=== PATIENT | male | born 1945 | race Caucasian/White ===

== ENCOUNTER 2016-10-06 22:42 | Inpatient (IN) | payer MEDICARE, OTHER ==
[~2016-10-06 22:42] MED LIST: ASTELIN137 MCG; AUGMENTIN 875-1 EAC2 PO; AVELOX400 MG PO; BACTRIM DS TAB1 EAC2 PO; BACTRIM DS1 TA1 PO; CIPRO250 MG PO; CIPRO500 MG PO; CLEOCIN HCL300 M1 PO; DELTASONE10 MG PO; DEXILANT60 MG PO; KEFLEX500 M2 PO; KEFLEX500 M4 PO; LEVAQUIN750 MG PO; LEXAPRO10 MG PO; LEXAPRO20 M2 PO; LOVENOX40 MG/0.4 SQ; MUCINEX D1 TAB.SR . PO; PANTOPRAZOLE SO40 M3 PO; PROTONIX40 MG PO; REGLAN10 M2 PO; REGLAN10 MG PO; TRIMETHOPRIM100 MG; XIFAXAN200 MG PO; ZOFRAN4 M2 PO; ZOFRAN4 MG PO; [UNRECOGNIZED DRUG - OTHER] PO
[2016-10-06 23:20] LABS: BASO % 0.1 % (0-2); EOS % 0.1 % (0-7); HCT-HEMATOCRIT 38.5 % (36.0-53.5); HGB-HEMOGLOBIN 12.8 gm/dl (13.5-17.0); IMMATURE GRANULOCYTES ABSOLUTE 0.02 tho/cmm (0-0.03); IMMATURE GRANULOCYTES PERCENT 0.1 % (0-0.3); LYMPH % 4.9 % (20-45); LYMPH ABSOLUTE COUNT 0.7 tho/cmm (0.8-4.5); MCH (MEAN CORPUSCULAR HGB) 31.4 pg (28.0-32.0); MCHC MEAN CORPUSCULAR HGB CONC 33.2 % (32.0-36.0); MCV (MEAN CELL VOLUME) 94.6 fl (82.0-96.0); MEAN PLATELET VOLUME 9.4 cmc (9.4-12.4); MONO % 10.7 % (0-12); MONOCYTE ABSOLUTE COUNT 1.5 tho/cmm (0.0-1.2); NEUTROPHIL ABSOLUTE COUNT 11.3 tho/cmm (1.6-8.0); NEUTROPHIL-AUTOMATED 11.3 tho/cmm (1.6-8.0); NEUTROPHILS % 84.1 % (40-80); PLATELET COUNT 333 tho/cmm (150-450); RED BLOOD COUNT 4.07 mil/cmm (4.40-5.70); RED CELL DISTRIBUTION WIDTH 14.8 % (12.4-16.4); WHITE BLOOD COUNT 13.5 tho/cmm (4.0-10.0)
[2016-10-06 23:45] LABS: ALB/GLOB RATIO 0.5 (0.8-2.0); ALBUMIN 2.3 g/dl (3.5-5.0); ALKALINE PHOSPHATASE 64 U/L (33-138); ALT/SGPT 20 U/L (12-78); ANION GAP 13 mmol/L (0-20); AST/SGOT 23 U/L (10-40); BILIRUBIN,TOTAL 0.2 mg/dl (0.0-1.5); BLOOD UREA NITROGEN 27 mg/dl (6-24); CALCIUM 8.7 mg/dl (8.5-10.5); CARBON DIOXIDE-VENOUS 26 mmol/L (22-32); CHLORIDE 101 mmol/l (96-110); CREATININE 0.86 mg/dl (0.60-1.30); GLUCOSE 124 mg/dL (70-110); POTASSIUM 4.2 mmol/L (3.7-5.1); SODIUM 136 mmol/L (135-145); eGFR VALUE FOR BLACK >90 mL/Min
[2016-10-06 23:56] LABS: PROTHROMBIN TIME 11.8 SECONDS (9.0-13.6)
[2016-10-07 00:42] LABS: URINE BILIRUBIN NEGATIVE (NEG); URINE BLOOD NEGATIVE (NEG); URINE GLUCOSE (UA) NEGATIVE (NEG); URINE KETONE NEGATIVE (NEG); URINE LEUKOCYTE ESTERASE NEGATIVE (NEG); URINE NITRITE NEGATIVE (NEG); URINE PROTEIN NEGATIVE (NEG)
[2016-10-07 00:43] LABS: URINE APPEARANCE HAZY; URINE COLOR YELLOW
[2016-10-07 00:48] LABS: URINE AMORPHOUS 1+; URINE EPITHELIAL CELLS 0 /[HPF] (0-10); URINE RBC 0 /[HPF] (0-5); URINE WBC 0-1 /[HPF] (0-5)
[2016-10-07 01:25] LABS: PROCALCITONIN 0.07 ng/ml (0.05-0.09)
[2016-10-07 02:58] LABS: C-REACTIVE PROTEIN 3.1 mg/dl (0-0.9)
[2016-10-07 04:25] LABS: BASO % 0.1 % (0-2); EOS % 0.2 % (0-7); HCT-HEMATOCRIT 39.9 % (36.0-53.5); HGB-HEMOGLOBIN 13.3 gm/dl (13.5-17.0); IMMATURE GRANULOCYTES ABSOLUTE 0.05 tho/cmm (0-0.03); IMMATURE GRANULOCYTES PERCENT 0.3 % (0-0.3); LYMPH % 2.6 % (20-45); LYMPH ABSOLUTE COUNT 0.5 tho/cmm (0.8-4.5); MCH (MEAN CORPUSCULAR HGB) 31.5 pg (28.0-32.0); MCHC MEAN CORPUSCULAR HGB CONC 33.3 % (32.0-36.0); MCV (MEAN CELL VOLUME) 94.5 fl (82.0-96.0); MONO % 6.2 % (0-12); MONOCYTE ABSOLUTE COUNT 1.1 tho/cmm (0.0-1.2); NEUTROPHIL ABSOLUTE COUNT 16.2 tho/cmm (1.6-8.0); NEUTROPHIL-AUTOMATED 16.2 tho/cmm (1.6-8.0); NEUTROPHILS % 90.6 % (40-80); PLATELET COUNT 344 tho/cmm (150-450); RED BLOOD COUNT 4.22 mil/cmm (4.40-5.70); RED CELL DISTRIBUTION WIDTH 14.8 % (12.4-16.4); WHITE BLOOD COUNT 17.9 tho/cmm (4.0-10.0)
[2016-10-07 05:17] LABS: ANION GAP 12 mmol/L (0-20); BLOOD UREA NITROGEN 28 mg/dl (6-24); CALCIUM 8.1 mg/dl (8.5-10.5); CARBON DIOXIDE-VENOUS 26 mmol/L (22-32); CHLORIDE 103 mmol/l (96-110); CREATININE 0.78 mg/dl (0.60-1.30); GLUCOSE 123 mg/dL (70-110); POTASSIUM 4.1 mmol/L (3.7-5.1); SODIUM 137 mmol/L (135-145); eGFR VALUE FOR BLACK >90 mL/Min
[2016-10-08 05:10] LABS: BASO % 0.2 % (0-2); EOS % 5.2 % (0-7); EOSINOPHIL ABSOLUTE COUNT 0.4 tho/cmm (0.0-0.7); HCT-HEMATOCRIT 36.4 % (36.0-53.5); HGB-HEMOGLOBIN 12.1 gm/dl (13.5-17.0); IMMATURE GRANULOCYTES ABSOLUTE 0.01 tho/cmm (0-0.03); IMMATURE GRANULOCYTES PERCENT 0.1 % (0-0.3); LYMPH % 12.6 % (20-45); MCH (MEAN CORPUSCULAR HGB) 31.4 pg (28.0-32.0); MCHC MEAN CORPUSCULAR HGB CONC 33.2 % (32.0-36.0); MCV (MEAN CELL VOLUME) 94.5 fl (82.0-96.0); MEAN PLATELET VOLUME 9.3 cmc (9.4-12.4); MONO % 7.3 % (0-12); MONOCYTE ABSOLUTE COUNT 0.6 tho/cmm (0.0-1.2); NEUTROPHIL ABSOLUTE COUNT 6.1 tho/cmm (1.6-8.0); NEUTROPHIL-AUTOMATED 6.1 tho/cmm (1.6-8.0); NEUTROPHILS % 74.6 % (40-80); PLATELET COUNT 293 tho/cmm (150-450); RED BLOOD COUNT 3.85 mil/cmm (4.40-5.70); RED CELL DISTRIBUTION WIDTH 14.9 % (12.4-16.4)
[2016-10-08 05:17] LABS: ANION GAP 11 mmol/L (0-20); BLOOD UREA NITROGEN 27 mg/dl (6-24); CALCIUM 8.3 mg/dl (8.5-10.5); CARBON DIOXIDE-VENOUS 28 mmol/L (22-32); CHLORIDE 102 mmol/l (96-110); CREATININE 0.76 mg/dl (0.60-1.30); GLUCOSE 97 mg/dL (70-110); SODIUM 137 mmol/L (135-145); eGFR VALUE FOR BLACK >90 mL/Min
[2016-10-08 05:24] LABS: WHITE BLOOD COUNT 8.1 tho/cmm (4.0-10.0)
[2016-10-08 05:25] LABS: POTASSIUM 4.4 mmol/L (3.7-5.1)
[2016-10-10 05:29] LABS: BASO % 0.4 % (0-2); EOS % 5.1 % (0-7); EOSINOPHIL ABSOLUTE COUNT 0.3 tho/cmm (0.0-0.7); HCT-HEMATOCRIT 37.5 % (36.0-53.5); HGB-HEMOGLOBIN 12.6 gm/dl (13.5-17.0); LYMPH % 17.7 % (20-45); MCH (MEAN CORPUSCULAR HGB) 31.4 pg (28.0-32.0); MCHC MEAN CORPUSCULAR HGB CONC 33.6 % (32.0-36.0); MCV (MEAN CELL VOLUME) 93.5 fl (82.0-96.0); MEAN PLATELET VOLUME 9.5 cmc (9.4-12.4); MONO % 9.2 % (0-12); MONOCYTE ABSOLUTE COUNT 0.5 tho/cmm (0.0-1.2); NEUTROPHIL ABSOLUTE COUNT 3.7 tho/cmm (1.6-8.0); NEUTROPHIL-AUTOMATED 3.7 tho/cmm (1.6-8.0); NEUTROPHILS % 67.6 % (40-80); PLATELET COUNT 339 tho/cmm (150-450); RED BLOOD COUNT 4.01 mil/cmm (4.40-5.70); RED CELL DISTRIBUTION WIDTH 14.4 % (12.4-16.4); WHITE BLOOD COUNT 5.5 tho/cmm (4.0-10.0)
[2016-10-10 05:47] LABS: ANION GAP 11 mmol/L (0-20); BLOOD UREA NITROGEN 17 mg/dl (6-24); CALCIUM 7.9 mg/dl (8.5-10.5); CARBON DIOXIDE-VENOUS 24 mmol/L (22-32); CHLORIDE 105 mmol/l (96-110); GLUCOSE 111 mg/dL (70-110); POTASSIUM 4.1 mmol/L (3.7-5.1); SODIUM 136 mmol/L (135-145)
[2016-10-10 05:48] LABS: C-REACTIVE PROTEIN 1.1 mg/dl (0-0.9); CREATININE 0.69 mg/dl (0.60-1.30); eGFR VALUE FOR BLACK >90 mL/Min
[2016-10-10 06:47] LABS: ESR-ERYTHROCYTE SED RATE 47 mm/hr (0-20)
[2016-10-11] MEDS ORDERED: VIBRAMYCIN100 M1 PO (13:59)
[2016-10-11] MEDS ORDERED: DOXYCYCLINE PO (14:01)
[2016-10-11] MEDS ORDERED: SULFAMYLON SOL250 M1 TOP (14:02)
[2016-11-23] MEDS ORDERED: PROTONIX40 M2 PO (14:23)
[2016-11-23] MEDS ORDERED: LEXAPRO20 M2 PO (14:23)
[2016-11-23] MEDS ORDERED: NORCO 5-325 TA1 EACH PO (14:24)
[2016-11-30] MEDS ORDERED: CITRATE OF MAG300 M1 PO (15:44)
[2016-11-30] MEDS ORDERED: MILK OF MAGNESIA PO (15:44)
[2016-11-30] MEDS ORDERED: ZOFRAN4 M2 PO (15:45)
[2016-11-30] MEDS ORDERED: MIRALAX17 G2 PO (15:45)
[2016-11-30] MEDS ORDERED: BISCOLAX10 MG PR (15:46)
[2016-11-30] MEDS ORDERED: SENEXON-S TABL1 EAC1 PO (15:46)
[2016-11-30] MEDS ORDERED: BACITRACIN28.4 G2 TP (15:47)
[2017-01-22] MEDS ORDERED: FLAGYL250 M1 PO (09:40)
[2017-01-22] MEDS ORDERED: SENEXON-S TABL1 EAC1 PO (09:42)
[2017-01-30] MEDS ORDERED: KEFLEX250 M2 PO (11:41)
[2017-02-24] MEDS ORDERED: CIPRO500 M2 PO (21:15)
== END 2016-10-11 15:30 | disposition home health service (06) | DRG 854 ==
LOC: EDMED 22:42 → EMR2 10-07 02:31 → PCUB 10-07 03:36
PROVIDERS: Emergency Medicine; Family Medicine; Nurse Practitioner; ADMIT Internal Medicine
PROC: 0JBR0ZZ Excision of Left Foot Subcutaneous Tissue and Fascia, Open Approach (ICD-10-PCS; principal; 2016-10-08)
DX: A41.01 Sepsis due to Methicillin susceptible Staphylococcus aureus (principal); L03.116 Cellulitis of left lower limb; L97.429 Non-pressure chronic ulcer of left heel and midfoot with unspecified severity; E44.1 Mild protein-calorie malnutrition; G60.0 Hereditary motor and sensory neuropathy; R65.20 Severe sepsis without septic shock; G60.9 Hereditary and idiopathic neuropathy, unspecified; K30 Functional dyspepsia; I87.2 Venous insufficiency (chronic) (peripheral); N31.9 Neuromuscular dysfunction of bladder, unspecified; R73.9 Hyperglycemia, unspecified; I87.8 Other specified disorders of veins; K21.9 Gastro-esophageal reflux disease without esophagitis; F32.9 Major depressive disorder, single episode, unspecified
CPT/HCPCS: A9577; J0171; J0690; J1650; J2405; J2543; J3370; J7030; J7999; P9612

== ENCOUNTER 2016-11-10 19:03 | Inpatient (IN) | payer MEDICARE, OTHER ==
[~2016-11-10 19:03] MED LIST changes: +DOXYCYCLINE PO; +SULFAMYLON SOL250 M1 TOP; +VIBRAMYCIN100 M1 PO
[2016-11-10 20:24] LABS: BASO % 0.5 % (0-2); EOS % 5.8 % (0-7); EOSINOPHIL ABSOLUTE COUNT 0.5 tho/cmm (0.0-0.7); HCT-HEMATOCRIT 38.4 % (36.0-53.5); HGB-HEMOGLOBIN 12.5 gm/dl (13.5-17.0); IMMATURE GRANULOCYTES ABSOLUTE 0.03 tho/cmm (0-0.03); IMMATURE GRANULOCYTES PERCENT 0.4 % (0-0.3); LYMPH % 15.9 % (20-45); LYMPH ABSOLUTE COUNT 1.3 tho/cmm (0.8-4.5); MCH (MEAN CORPUSCULAR HGB) 31.3 pg (28.0-32.0); MCHC MEAN CORPUSCULAR HGB CONC 32.6 % (32.0-36.0); MEAN PLATELET VOLUME 9.4 cmc (9.4-12.4); MONO % 9.8 % (0-12); MONOCYTE ABSOLUTE COUNT 0.8 tho/cmm (0.0-1.2); NEUTROPHIL ABSOLUTE COUNT 5.7 tho/cmm (1.6-8.0); NEUTROPHIL-AUTOMATED 5.7 tho/cmm (1.6-8.0); NEUTROPHILS % 67.6 % (40-80); PLATELET COUNT 328 tho/cmm (150-450); WHITE BLOOD COUNT 8.5 tho/cmm (4.0-10.0)
--- NOTE | 2016-11-11 20:40 | NUR ---
VN/LEADER ROUNDING NOTE-PATIENT WAS SLEEPING SO DID NOT DISTURB. RUNNING IV FLUIDS. DID RESEARCH THE SHIFT REPORT CONCERN REGARDING THE HOME ABX HAD INTERACTIONS WITH THE ZOSYN THE DOCTOR ORDERED FOR PATIENT HERE IN THE HOSPITAL ON 11/10. THIS WAS CLARIFIED BY THE DOCTOR THIS MORNING WITH THE DOXYCYCLINE WAS DISCONTINUED. NOTIFIED BEDSIDE RN AND UPDATED SHIFT REPORT. CHART REVIEWED
[2016-11-13 05:15] LABS: BASO % 0.2 % (0-2); EOS % 0.8 % (0-7); EOSINOPHIL ABSOLUTE COUNT 0.1 tho/cmm (0.0-0.7); HCT-HEMATOCRIT 41.2 % (36.0-53.5); HGB-HEMOGLOBIN 13.7 gm/dl (13.5-17.0); IMMATURE GRANULOCYTES ABSOLUTE 0.03 tho/cmm (0-0.03); IMMATURE GRANULOCYTES PERCENT 0.2 % (0-0.3); LYMPH ABSOLUTE COUNT 0.7 tho/cmm (0.8-4.5); MCH (MEAN CORPUSCULAR HGB) 31.4 pg (28.0-32.0); MCHC MEAN CORPUSCULAR HGB CONC 33.3 % (32.0-36.0); MCV (MEAN CELL VOLUME) 94.3 fl (82.0-96.0); MEAN PLATELET VOLUME 9.9 cmc (9.4-12.4); MONO % 6.3 % (0-12); MONOCYTE ABSOLUTE COUNT 0.9 tho/cmm (0.0-1.2); NEUTROPHILS % 87.5 % (40-80); PLATELET COUNT 369 tho/cmm (150-450); RED BLOOD COUNT 4.37 mil/cmm (4.40-5.70); RED CELL DISTRIBUTION WIDTH 15.1 % (12.4-16.4)
[2016-11-13 05:19] LABS: WHITE BLOOD COUNT 14.9 tho/cmm (4.0-10.0)
--- NOTE | 2016-11-13 16:33 | NUR ---
VIRTUAL CARE NOTE: VISITED WITH PT AT THIS TIME. HE IS SITTING UP IN BED. STATES THAT HE HAS NO NAUSEA, NO PAIN AT THIS TIME. IS NOT SURE ABOUT HIS DISCHARGE PLAN, BUT HOPES TO RETURN HOME SOON. POSSIBLY 11/14? HAS NO FURTHER NEEDS AT THIS TIME. 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 WILL CONTINUE TO MONITOR. ELECTRONIC CHART REVIEWED.
--- NOTE | 2016-11-13 18:39 | NUR ---
VIRTUAL CARE NOTE: ASSESSMENT DEFERRED. PT. SLEEPING.
--- NOTE | 2016-11-13 20:10 | NUR ---
VIRTUAL CARE NOTE: PT. IN BED, STATES PAIN IS TOLERABLE. DENIES FURTHER NEEDS AND HAS NOT FURTHER QUESTIONS AT THIS TIME. INSTRUCTED TO CALL FOR FUTURE NEEDS. STATES VERBAL AGREEMENT.
--- NOTE | 2016-11-14 13:51 | NUR ---
[address] NOTE: CHECKED IN ON PT--HE IS SLEEPING SOUNDLY. DID NOT DISTURB. POSSIBLE DISCHARGE TODAY OR TOMORROW 11/15. WILL AWAIT FURTHER ORDERS. WILL CONTINUE TO MONITOR. ELECTRONIC CHART REVIEWED.
--- NOTE | 2016-11-14 21:40 | NUR ---
VIRTUAL CARE NOTED. PT. IS IN BED AND STATES IS DOINB BETTER WITH ENSURES THAN PRIOR DAY. DENIES ANY NEEDS AND DOESN'T HAVE ANY QUESTIONS AT THIS TIME. INSTRUCTED TO CALL FOR FURTHER NEEDS.
[2016-11-15] MEDS ORDERED: HYDROCODON-ACE1 EA16 PO (07:53)
[2016-11-15] MEDS ORDERED: BACITRACIN28.4 G2 TP (11:34)
[2016-11-15] MEDS ORDERED: AUGMENTIN 875-1 EAC2 PO (11:34)
[2016-11-23] MEDS ORDERED: PROTONIX40 M2 PO (14:23)
[2016-11-23] MEDS ORDERED: LEXAPRO20 M2 PO (14:23)
[2016-11-23] MEDS ORDERED: NORCO 5-325 TA1 EACH PO (14:24)
[2016-11-30] MEDS ORDERED: CITRATE OF MAG300 M1 PO (15:44)
[2016-11-30] MEDS ORDERED: MILK OF MAGNESIA PO (15:44)
[2016-11-30] MEDS ORDERED: ZOFRAN4 M2 PO (15:45)
[2016-11-30] MEDS ORDERED: MIRALAX17 G2 PO (15:45)
[2016-11-30] MEDS ORDERED: SENEXON-S TABL1 EAC1 PO (15:46)
[2016-11-30] MEDS ORDERED: BISCOLAX10 MG PR (15:46)
[2016-11-30] MEDS ORDERED: BACITRACIN28.4 G2 TP (15:47)
[2017-01-22] MEDS ORDERED: FLAGYL250 M1 PO (09:40)
[2017-01-22] MEDS ORDERED: SENEXON-S TABL1 EAC1 PO (09:42)
[2017-01-30] MEDS ORDERED: KEFLEX250 M2 PO (11:41)
[2017-02-24] MEDS ORDERED: CIPRO500 M2 PO (21:15)
== END 2016-11-15 12:30 | DRG 505 ==
LOC: BURN 19:03 → 5WD 11-11 15:40
PROVIDERS: Physician Assistant Surgical; Surgery; ADMIT Surgery
PROC: 0Y6Q0Z0 Detachment at Left 1st Toe, Complete, Open Approach (ICD-10-PCS; principal; 2016-11-11)
DX: M86.8X7 Other osteomyelitis, ankle and foot (principal); G62.9 Polyneuropathy, unspecified; G60.0 Hereditary motor and sensory neuropathy; N31.9 Neuromuscular dysfunction of bladder, unspecified; I87.2 Venous insufficiency (chronic) (peripheral); Z91.09 Other allergy status, other than to drugs and biological substances
CPT/HCPCS: G0463; G8978-GP-CJ; G8979-GP-CJ; J0171; J2250; J2543; J7999

== ENCOUNTER 2016-12-11 10:18 | Inpatient (IN) | payer MEDICARE, OTHER ==
[~2016-12-11 10:18] MED LIST changes: +BACITRACIN28.4 G2 TP; +BISCOLAX10 MG PR; +CITRATE OF MAG300 M1 PO; +HYDROCODON-ACE1 EA16 PO; +MILK OF MAGNESIA PO; +MIRALAX17 G2 PO; +NORCO 5-325 TA1 EACH PO; +PROTONIX40 M2 PO; +SENEXON-S TABL1 EAC1 PO
[2016-12-11 19:46] LABS: BASO % 0.4 % (0-2); EOS % 3.1 % (0-7); EOSINOPHIL ABSOLUTE COUNT 0.2 tho/cmm (0.0-0.7); HCT-HEMATOCRIT 35.4 % (36.0-53.5); HGB-HEMOGLOBIN 11.8 gm/dl (13.5-17.0); IMMATURE GRANULOCYTES ABSOLUTE 0.01 tho/cmm (0-0.03); IMMATURE GRANULOCYTES PERCENT 0.1 % (0-0.3); LYMPH ABSOLUTE COUNT 0.9 tho/cmm (0.8-4.5); MCH (MEAN CORPUSCULAR HGB) 31.5 pg (28.0-32.0); MCHC MEAN CORPUSCULAR HGB CONC 33.3 % (32.0-36.0); MCV (MEAN CELL VOLUME) 94.4 fl (82.0-96.0); MEAN PLATELET VOLUME 9.3 cmc (9.4-12.4); MONO % 13.9 % (0-12); MONOCYTE ABSOLUTE COUNT 1.1 tho/cmm (0.0-1.2); NEUTROPHIL ABSOLUTE COUNT 5.4 tho/cmm (1.6-8.0); NEUTROPHIL-AUTOMATED 5.4 tho/cmm (1.6-8.0); NEUTROPHILS % 70.5 % (40-80); PLATELET COUNT 281 tho/cmm (150-450); RED BLOOD COUNT 3.75 mil/cmm (4.40-5.70); RED CELL DISTRIBUTION WIDTH 14.8 % (12.4-16.4); WHITE BLOOD COUNT 7.7 tho/cmm (4.0-10.0)
[2016-12-11 19:51] LABS: PROTHROMBIN TIME 11.4 SECONDS (9.0-13.6)
[2016-12-11 20:04] LABS: ALB/GLOB RATIO 0.5 (0.8-2.0); ALBUMIN 2.3 g/dl (3.5-5.0); ALKALINE PHOSPHATASE 65 U/L (33-138); ALT/SGPT 14 U/L (12-78); ANION GAP 11 mmol/L (0-20); AST/SGOT 23 U/L (10-40); BILIRUBIN,TOTAL 0.3 mg/dl (0.0-1.5); BLOOD UREA NITROGEN 26 mg/dl (6-24); CALCIUM 8.3 mg/dl (8.5-10.5); CARBON DIOXIDE-VENOUS 29 mmol/L (22-32); CHLORIDE 101 mmol/l (96-110); CREATININE 0.71 mg/dl (0.60-1.30); GLUCOSE 100 mg/dL (70-110); MAGNESIUM 1.9 mg/dl (1.8-2.6); PHOSPHOROUS 2.3 mg/dl (2.5-4.9); POTASSIUM 4.3 mmol/L (3.7-5.1); SODIUM 137 mmol/L (135-145); eGFR VALUE FOR BLACK >90 mL/Min
[2016-12-12 06:08] LABS: BASO % 0.7 % (0-2); EOS % 6.9 % (0-7); EOSINOPHIL ABSOLUTE COUNT 0.4 tho/cmm (0.0-0.7); HCT-HEMATOCRIT 34.9 % (36.0-53.5); HGB-HEMOGLOBIN 11.4 gm/dl (13.5-17.0); IMMATURE GRANULOCYTES ABSOLUTE 0.01 tho/cmm (0-0.03); IMMATURE GRANULOCYTES PERCENT 0.2 % (0-0.3); LYMPH ABSOLUTE COUNT 0.7 tho/cmm (0.8-4.5); MCH (MEAN CORPUSCULAR HGB) 30.9 pg (28.0-32.0); MCHC MEAN CORPUSCULAR HGB CONC 32.7 % (32.0-36.0); MCV (MEAN CELL VOLUME) 94.6 fl (82.0-96.0); MEAN PLATELET VOLUME 9.4 cmc (9.4-12.4); MONO % 15.8 % (0-12); MONOCYTE ABSOLUTE COUNT 0.9 tho/cmm (0.0-1.2); NEUTROPHIL ABSOLUTE COUNT 3.6 tho/cmm (1.6-8.0); NEUTROPHIL-AUTOMATED 3.6 tho/cmm (1.6-8.0); NEUTROPHILS % 63.4 % (40-80); PLATELET COUNT 268 tho/cmm (150-450); RED BLOOD COUNT 3.69 mil/cmm (4.40-5.70); RED CELL DISTRIBUTION WIDTH 14.8 % (12.4-16.4); WHITE BLOOD COUNT 5.7 tho/cmm (4.0-10.0)
[2016-12-12 06:12] LABS: ANION GAP 12 mmol/L (0-20); BLOOD UREA NITROGEN 18 mg/dl (6-24); CALCIUM 7.8 mg/dl (8.5-10.5); CARBON DIOXIDE-VENOUS 27 mmol/L (22-32); CHLORIDE 102 mmol/l (96-110); CREATININE 0.69 mg/dl (0.60-1.30); GLUCOSE 89 mg/dL (70-110); MAGNESIUM 1.9 mg/dl (1.8-2.6); PHOSPHOROUS 2.6 mg/dl (2.5-4.9); POTASSIUM 4.3 mmol/L (3.7-5.1); SODIUM 137 mmol/L (135-145); eGFR VALUE FOR BLACK >90 mL/Min
[2016-12-13 06:00] LABS: BASO % 0.4 % (0-2); EOS % 6.1 % (0-7); EOSINOPHIL ABSOLUTE COUNT 0.5 tho/cmm (0.0-0.7); HCT-HEMATOCRIT 36.1 % (36.0-53.5); HGB-HEMOGLOBIN 11.9 gm/dl (13.5-17.0); IMMATURE GRANULOCYTES ABSOLUTE 0.02 tho/cmm (0-0.03); IMMATURE GRANULOCYTES PERCENT 0.3 % (0-0.3); LYMPH % 8.9 % (20-45); LYMPH ABSOLUTE COUNT 0.7 tho/cmm (0.8-4.5); MCH (MEAN CORPUSCULAR HGB) 31.1 pg (28.0-32.0); MCV (MEAN CELL VOLUME) 94.3 fl (82.0-96.0); MEAN PLATELET VOLUME 9.5 cmc (9.4-12.4); MONO % 8.5 % (0-12); MONOCYTE ABSOLUTE COUNT 0.6 tho/cmm (0.0-1.2); NEUTROPHIL ABSOLUTE COUNT 5.7 tho/cmm (1.6-8.0); NEUTROPHIL-AUTOMATED 5.7 tho/cmm (1.6-8.0); NEUTROPHILS % 75.8 % (40-80); PLATELET COUNT 329 tho/cmm (150-450); RED BLOOD COUNT 3.83 mil/cmm (4.40-5.70); RED CELL DISTRIBUTION WIDTH 14.8 % (12.4-16.4); WHITE BLOOD COUNT 7.5 tho/cmm (4.0-10.0)
[2016-12-13 06:39] LABS: ANION GAP 14 mmol/L (0-20); BLOOD UREA NITROGEN 23 mg/dl (6-24); CALCIUM 8.2 mg/dl (8.5-10.5); CARBON DIOXIDE-VENOUS 27 mmol/L (22-32); CHLORIDE 98 mmol/l (96-110); CREATININE 0.64 mg/dl (0.60-1.30); GLUCOSE 109 mg/dL (70-110); SODIUM 135 mmol/L (135-145); eGFR VALUE FOR BLACK >90 mL/Min
[2016-12-22 13:40] LABS: ALBUMIN 2.1 g/dl (3.5-5.0); PREALBUMIN 26.9 mg/dl (20.0-40.0)
--- NOTE | 2016-12-23 14:05 | NUR ---
VIRTUAL CARE NOTE: CHECKED IN ON PT AT THIS TIME. HE IS JUST GETTING SITUATED WITH INSECTICIDE SPRAYER. STATES HE IS ABLE TO STAND, BUT BEARS WEIGHT ON HIS HEEL (LT FOOT TOE-TOUCH WEIGHT BEARING PER ORDERS). STATES HIS PAIN IS WELL CONTROLLED. STATES HE HAD HIS LT GREAT TOE REMOVED IN OCTOBER AND HAS HAD PROCEDURES SINCE. IS CURRENTLY RESIDING AT [facility], WITH PLANS TO RETURN THERE AT DISCHARGE. PT STATES HE HAD HIS GASTRIC EMPTYING STUDY THIS AM, RESULTS ARE PENDING. HAS ONLY BEEN ABLE TO TOLERATED LIQUIDS FOR A DIET, DUE TO CHRONIC NAUSEA AND ISSUES WITH EMESIS. IS HOPING TO HAVE A J-TUBE PLACED IN THE FUTURE TO HELP WITH NUTRITION. PT IS VERY THIN AND HAS MANY MARÍA ELENA PROMINENCES. ENCOURAGED REPOSITIONING IN HIS BED. ALSO ENCOURAGED I.S. PT SAYS HE HAS USED IT A FEW TIMES TODAY ALREADY--TOLD HIM TO USE AT LEAST 10 X AN HOUR EVERY HOUR WHILE AWAKE. HE AGREES TO ATTEMPT TO USE IT MUCH HE CAN REMEMBER TO DO SO. IT IS AT BEDSIDE ON TABLE, WELL CALL LIGHT WITHIN REACH. WILL CONTINUE TO MONITOR. HAS NO FURTHER QUESTIONS OR NEEDS. ELECTRONIC CHART REVIEWED.
--- NOTE | 2016-12-23 21:26 | NUR ---
DANNY ZAMORA-VISITED WITH PATIENT HE LAY IN BED. DENIES PAIN AND WAS HAVING A LITTLE NAUSEA BUT NURSE GAVE HIM A ZOFRAN SO HE IS FEELING BETTER. WE DISCUSSED THAT HE WOULD LIKE TO HAVE A J TUBE AND SAID DOCTOR WILL SEE ABOUT SOME TESTS IF IT IS NEEDED. PATIENT STATES HE CAN ONLY TOLERATE FULL LIQUIDS. I DID LET HIM KNOW THE GASTRIC EMPTYING STUDY RESULTS WERE BACK AND THAT THE DOCTOR WILL PROBABLY DISCUSS WITH HIM TOMORROW. NO OTHER QUESTIONS OR CONCERNS AT THIS TIME. CHART WAS REVIEWED.
--- NOTE | 2016-12-24 15:12 | NUR ---
VIRTUAL CARE NOTE: VISITED WITH PT AT THIS TIME. TALKED TO HIM ABOUT THE RESULTS OF HIS GASTRIC EMPTYING STUDY. STATES THAT HE IS STILL HOPING FOR A J-TUBE PLACEMENT TO HELP WITH NUTRITION, HE ONLY TOLERATES ENSURE LIQUID DRINKS D/T QUICKLY FEELING FULL AND NAUSEATED. WENT OVER DC PLAN WITH HIM WELL, PLAN FOR REHAB AT [place]. HE IS IN AGREEMENT WITH THIS PLAN. NO FURTHER QUESTIONS. READY TO GET BACK INTO BED-SITTING UP IN CHAIR. HIS RN WILL RETURN TO HELP HIM WITH THIS WHEN WE ARE DONE CONVERSING. ALERT/ORIENTED. CALL LIGHT WITHIN REACH. ENCOURAGED HIM TO CALL VN IF HE HAS FURTHER QUESTIONS. ELECTRONIC CHART REVIEWED.
--- NOTE | 2016-12-24 20:14 | NUR ---
VN ROUNDING DEFERRED PATIENT IS SLEEPING. UNABLE TO REVIEW CHART VERY WELL NOTHING FAXED DOWN SINCE 12/22
--- NOTE | 2016-12-25 11:51 | NUR ---
VIRTUAL CARE NOTE: PT SITTING ON CHAIR, STATES DOING OK. CHART REVIEWED, PT WILL HAVE J-TUBE PLACEMENT TOMORROW AFTERNOON FOR TUBE FEEDING. PRE-OP AND POST-OP INFORMATION REVIEWED WITH PT, QUESTIONS ANSWERED. PT SAID HE ALSO TALKED TO VIROLOGIST RECENTLY. PT DENIES FURTHER QUESTIONS.
--- NOTE | 2016-12-25 21:55 | NUR ---
VIRTUAL CARE NOTE: ASSESSMENT DEFERRED. PT. SLEEPING.
--- NOTE | 2016-12-26 21:44 | NUR ---
VIRTUAL CARE NOTE: ASSESSMENT DEFERRED. PT. SLEEPING.
[2016-12-27 04:49] LABS: HCT-HEMATOCRIT 39.6 % (36.0-53.5); HGB-HEMOGLOBIN 12.9 gm/dl (13.5-17.0); IMMATURE GRANULOCYTES ABSOLUTE 0.02 tho/cmm (0-0.03); IMMATURE GRANULOCYTES PERCENT 0.2 % (0-0.3); LYMPH % 6.6 % (20-45); LYMPH ABSOLUTE COUNT 0.7 tho/cmm (0.8-4.5); MCH (MEAN CORPUSCULAR HGB) 30.6 pg (28.0-32.0); MCHC MEAN CORPUSCULAR HGB CONC 32.6 % (32.0-36.0); MCV (MEAN CELL VOLUME) 94.1 fl (82.0-96.0); MONO % 5.3 % (0-12); MONOCYTE ABSOLUTE COUNT 0.5 tho/cmm (0.0-1.2); NEUTROPHIL ABSOLUTE COUNT 8.7 tho/cmm (1.6-8.0); NEUTROPHIL-AUTOMATED 8.7 tho/cmm (1.6-8.0); NEUTROPHILS % 87.9 % (40-80); PLATELET COUNT 371 tho/cmm (150-450); RED BLOOD COUNT 4.21 mil/cmm (4.40-5.70); RED CELL DISTRIBUTION WIDTH 14.7 % (12.4-16.4); WHITE BLOOD COUNT 9.9 tho/cmm (4.0-10.0)
[2016-12-27 05:11] LABS: ANION GAP 13 mmol/L (0-20); BLOOD UREA NITROGEN 17 mg/dl (6-24); CALCIUM 7.9 mg/dl (8.5-10.5); CARBON DIOXIDE-VENOUS 27 mmol/L (22-32); CHLORIDE 101 mmol/l (96-110); CREATININE 0.86 mg/dl (0.60-1.30); GLUCOSE 157 mg/dL (70-110); POTASSIUM 4.6 mmol/L (3.7-5.1); SODIUM 136 mmol/L (135-145); eGFR VALUE FOR BLACK >90 mL/Min
--- NOTE | 2016-12-27 16:03 | NUR ---
VIRTUAL CARE NOTE: CHECKED IN ON PT AT THIS TIME. HE;S RESTING IN BED. STATES HE CANT TALK MUCH DUE TO A SORE THROAT. STATES "I'M DOING OK" AND THAT HE IS TOLERATING HIS TUBE FEEDS AT THIS TIME. WILL CHECK BACK WITH HIM TOMORROW. POSSIBLE DC TO [facility] OR OTHER SNF SOON. WILL CONTINUE TO MONITOR. ELECTRONIC CHART REVIEWED. PTS CALL LIGHT IS WITHIN REACH.
--- NOTE | 2016-12-28 17:27 | NUR ---
1642-VIRTUAL CARE NOTE-ATTEMPTING ROUNDING ON PATIENT, BUT ASLEEP. CALL LIGHT WITH IN EMMA MOLINA RN
--- NOTE | 2016-12-29 20:52 | NUR ---
VIRTUAL CARE NOTE: PT. IN BED, STATES HAS BEEN PASSING FLATUS, ALTHOUGH IS C/O OF NAUSEA, AND BLOATING WITH THE TUBE FEED INCREASED. ASKED IF HE FELT OKAY WITH IT GOING AT 20CC PER HOUR PRIOR. STATES HE WAS ABLE TO TOLERATE IT THEN. THIS RN WILL CONTACT SETUP OPERATOR PROVIDER WITH DETAILS. INSTRUCTED PT. TO CALL FOR FURTHER NEEDS. STATES GRATETUDE AND VERBAL AGREEMENT.
--- NOTE | 2016-12-30 16:49 | NUR ---
VIRTUAL CARE NOTE: PT RESTING ON BED, STATES FEELING BETTER RECENTLY WITH NAUSEA AFTER REGLAN GIVEN. STILL NOT ABLE TO TAKE PO, TF SLOWLY RUNNING. PT DENIES ANY NEEDS OR CONCERNS AT THIS TIME.
[2016-12-31 04:46] LABS: BASO % 0.1 % (0-2); EOS % 0.1 % (0-7); HCT-HEMATOCRIT 40.7 % (36.0-53.5); HGB-HEMOGLOBIN 13.8 gm/dl (13.5-17.0); IMMATURE GRANULOCYTES ABSOLUTE 0.04 tho/cmm (0-0.03); IMMATURE GRANULOCYTES PERCENT 0.3 % (0-0.3); LYMPH % 5.7 % (20-45); LYMPH ABSOLUTE COUNT 0.9 tho/cmm (0.8-4.5); MCH (MEAN CORPUSCULAR HGB) 31.5 pg (28.0-32.0); MCHC MEAN CORPUSCULAR HGB CONC 33.9 % (32.0-36.0); MCV (MEAN CELL VOLUME) 92.9 fl (82.0-96.0); MEAN PLATELET VOLUME 9.4 cmc (9.4-12.4); MONO % 4.1 % (0-12); MONOCYTE ABSOLUTE COUNT 0.6 tho/cmm (0.0-1.2); NEUTROPHIL ABSOLUTE COUNT 13.9 tho/cmm (1.6-8.0); NEUTROPHIL-AUTOMATED 13.9 tho/cmm (1.6-8.0); NEUTROPHILS % 89.7 % (40-80); PLATELET COUNT 373 tho/cmm (150-450); RED BLOOD COUNT 4.38 mil/cmm (4.40-5.70); RED CELL DISTRIBUTION WIDTH 14.9 % (12.4-16.4); WHITE BLOOD COUNT 15.5 tho/cmm (4.0-10.0)
[2016-12-31 05:09] LABS: ANION GAP 9 mmol/L (0-20); BLOOD UREA NITROGEN 12 mg/dl (6-24); CALCIUM 8.3 mg/dl (8.5-10.5); CARBON DIOXIDE-VENOUS 29 mmol/L (22-32); CHLORIDE 100 mmol/l (96-110); CREATININE 0.68 mg/dl (0.60-1.30); GLUCOSE 115 mg/dL (70-110); POTASSIUM 3.4 mmol/L (3.7-5.1); SODIUM 135 mmol/L (135-145); eGFR VALUE FOR BLACK >90 mL/Min
--- NOTE | 2016-12-31 12:37 | NUR ---
VIRTUAL CARE NOTE: ROUNDED ON PT, STATES DOING OK, NEEDS TO GO TO [place] AT THIS TIME, PT HAS CALLED. NO OTHER NEEDS.
[2017-01-01 05:01] LABS: HCT-HEMATOCRIT 36.2 % (36.0-53.5); HGB-HEMOGLOBIN 12.7 gm/dl (13.5-17.0); IMMATURE GRANULOCYTES ABSOLUTE 0.02 tho/cmm (0-0.03); IMMATURE GRANULOCYTES PERCENT 0.2 % (0-0.3); LYMPH % 9.3 % (20-45); LYMPH ABSOLUTE COUNT 1.1 tho/cmm (0.8-4.5); MCH (MEAN CORPUSCULAR HGB) 32.2 pg (28.0-32.0); MCHC MEAN CORPUSCULAR HGB CONC 35.1 % (32.0-36.0); MCV (MEAN CELL VOLUME) 91.9 fl (82.0-96.0); MEAN PLATELET VOLUME 9.5 cmc (9.4-12.4); MONO % 9.8 % (0-12); MONOCYTE ABSOLUTE COUNT 1.1 tho/cmm (0.0-1.2); NEUTROPHIL ABSOLUTE COUNT 9.4 tho/cmm (1.6-8.0); NEUTROPHIL-AUTOMATED 9.4 tho/cmm (1.6-8.0); NEUTROPHILS % 80.7 % (40-80); PLATELET COUNT 377 tho/cmm (150-450); RED BLOOD COUNT 3.94 mil/cmm (4.40-5.70); RED CELL DISTRIBUTION WIDTH 15.1 % (12.4-16.4); WHITE BLOOD COUNT 11.7 tho/cmm (4.0-10.0)
[2017-01-01 05:19] LABS: ANION GAP 13 mmol/L (0-20); CALCIUM 8.4 mg/dl (8.5-10.5); CARBON DIOXIDE-VENOUS 28 mmol/L (22-32); CHLORIDE 102 mmol/l (96-110); CREATININE 0.92 mg/dl (0.60-1.30); GLUCOSE 124 mg/dL (70-110); POTASSIUM 3.8 mmol/L (3.7-5.1); SODIUM 139 mmol/L (135-145); eGFR VALUE FOR BLACK >90 mL/Min
[2017-01-01 05:30] LABS: BLOOD UREA NITROGEN 29 mg/dl (6-24)
--- NOTE | 2017-01-01 19:03 | NUR ---
VIRTUAL CARE NOTE: PT. IN BED. STATES HAS TOLERATED HIS FEEDINGS TODAY AT 20CC PER HOUR. TUBE FEEDING VIEWED NOT ON. WILL CHECK WITH UNIT RN AND REVIEW ORDERS. DENIES PAIN. STATES HE FEELS GOOD TODAY. EDUCATION REVIEWED ON REASONING PT. HAS A YELLOW BAND ON. IS ABLE TO STATE CORRECTLY THAT HE CALLS FOR STAFF MEMBER TO HELP HIM BEFORE HE GETS UP. PRAISE GIVEN. DENIES FURTHER NEEDS AT THIS TIME. INSTRUCTED TO CALL FOR FUTURE NEEDS. STATES VERBAL AGREEMENT.
--- NOTE | 2017-01-02 18:18 | NUR ---
VN ROUNDING DEFERRED PATIENT IS SLEEPING. EMR REVIEWED AND NOTED THAT DR YOUNG WITH GI IS BEING CONSULTED FOR GI DYSMOBILITY.
[2017-01-03 05:06] LABS: ANION GAP 10 mmol/L (0-20); BLOOD UREA NITROGEN 12 mg/dl (6-24); CALCIUM 7.3 mg/dl (8.5-10.5); CARBON DIOXIDE-VENOUS 26 mmol/L (22-32); CHLORIDE 103 mmol/l (96-110); CREATININE 0.58 mg/dl (0.60-1.30); GLUCOSE 83 mg/dL (70-110); MAGNESIUM 1.5 mg/dl (1.8-2.6); PHOSPHOROUS 1.3 mg/dl (2.5-4.9); POTASSIUM 3.8 mmol/L (3.7-5.1); SODIUM 135 mmol/L (135-145); eGFR VALUE FOR BLACK >90 mL/Min
[2017-01-03 05:07] LABS: BASO % 0.6 % (0-2); EOS % 7.2 % (0-7); EOSINOPHIL ABSOLUTE COUNT 0.3 tho/cmm (0.0-0.7); HCT-HEMATOCRIT 29.5 % (36.0-53.5); HGB-HEMOGLOBIN 9.7 gm/dl (13.5-17.0); IMMATURE GRANULOCYTES ABSOLUTE 0.01 tho/cmm (0-0.03); IMMATURE GRANULOCYTES PERCENT 0.2 % (0-0.3); LYMPH % 27.7 % (20-45); LYMPH ABSOLUTE COUNT 1.3 tho/cmm (0.8-4.5); MCV (MEAN CELL VOLUME) 93.1 fl (82.0-96.0); MEAN PLATELET VOLUME 9.2 cmc (9.4-12.4); MONO % 14.9 % (0-12); MONOCYTE ABSOLUTE COUNT 0.7 tho/cmm (0.0-1.2); NEUTROPHIL ABSOLUTE COUNT 2.3 tho/cmm (1.6-8.0); NEUTROPHIL-AUTOMATED 2.3 tho/cmm (1.6-8.0); NEUTROPHILS % 49.4 % (40-80); PLATELET COUNT 296 tho/cmm (150-450); RED BLOOD COUNT 3.17 mil/cmm (4.40-5.70); RED CELL DISTRIBUTION WIDTH 15.1 % (12.4-16.4)
[2017-01-03 05:29] LABS: MCH (MEAN CORPUSCULAR HGB) 30.6 pg (28.0-32.0); MCHC MEAN CORPUSCULAR HGB CONC 32.9 % (32.0-36.0); WHITE BLOOD COUNT 4.7 tho/cmm (4.0-10.0)
--- NOTE | 2017-01-03 05:41 | NUR ---
VIRTUAL CARE NOTE: POTASSIUM PROTOCOL DC'D. LABS MET CRITERIA. NOTE LEFT IN CHART FYI FOR DR. RICHARDS THAT WE ARE NO LONGER REPLACING AND PT HAS NO KCL ORDERS.
--- NOTE | 2017-01-03 11:25 | NUR ---
VIRTUAL CARE NOTE: PT RESTING ON BED, PT STATES DOING OK TODAY. TF OFF AT THIS TIME GI DOCTOR WANTS TO RESUME TF IF OK WITH , CALL PLACED TO 'S OFFICE TO CHECK ON THIS. DISCHARGE PLAN DISCUSSED WITH PT POSSISBLE DC TO [facility] SOON. ALL QUESTIONS ANSWERED TO PT, PT DENIES FURTHER QUESTIONS OR CONCERNS.
--- NOTE | 2017-01-03 20:46 | NUR ---
VN ROUNDING-PATIENT LAYING IN BED WITH THE TUBE FEEDING RUNNING. HE HAS HAD A GOOD DAY AND FEELING WELL. WE TALKED ABOUT HIM POSSIBLY GOING TO [place] IN THE NEXT OR TWO [place]EF[place] WHICH HE IS LOOKING FORWARD TO HE HAS FRIENDS THERE. HE DENIES PAIN AND HAS NO QUESTIONS OR CONCERNS AT THIS TIME. EMR REVIEWED.
--- NOTE | 2017-01-04 19:11 | NUR ---
VIRTUAL CARE NOTE: PT. SLEEPING ASSESSMENT DEFERRED.
--- NOTE | 2017-01-06 13:40 | NUR ---
VIRTAUL CARE GRACE: PT AWAKE, RESTING IN BED, ELLIE AT BEDSIDE. PT STATES FEELING A LITTLE BETTER TODAY, STATES "LAST NIGHT WAS ROUGH". CHART REVIEWED, TF ORDERS TO RESTART AT 20ML/HR WITH NO INCREASE, TUBEFEEDING NOTED TO BE INFUSING, PT AWARE TO NOTIFY NURSING IF INCREASE PAIN/N/V. PT DENIES QUESTIONS/CONCERNS AT THIS TIME, STATES SHE SPOKE W/ NURSE ALREADY TODAY AND DENIES QUESTIONS. VN WILL CONTINUE TO MONITOR ELECTRONIC RECORD AND FOLLOW W/ PT.
--- NOTE | 2017-01-06 19:25 | NUR ---
VIRTUAL CARE NOTE: PT. SLEEPING ASSESSMENT DEFERRED.
--- NOTE | 2017-01-07 15:24 | NUR ---
VIRTUAL CARE NOTE: PT AWAKE, RESTING IN BED, NO FAMILY AT BEDSIDE AT THIS TIME. PT VERBALIZES TF HAS BEEN INCREASED TO 30ML/HR AND PT DENIES N/V OR ABD DISTENTION AT THIS TIME. PT DENIES QUESTIONS/CONCERNS. VN WILL CONTINUE TO MONITOR ELECTRONIC RECORD AND FOLLOW WITH PT.
--- NOTE | 2017-01-07 19:24 | NUR ---
VIRTURAL CARE NOTE: PT. IN BED, STATES IS FEELING PRETTY GOOD TODAY, AND DENIES PAIN OR QUESTIONS REGARDING HIS CARE. FALL PRECAUTIONS REVIEWED, AND INSTRUCTED TO CALL FOR FURTHER NEEDS. STATES VERBAL AGREEMENT.
[2017-01-22] MEDS ORDERED: FLAGYL250 M1 PO (09:40)
[2017-01-22] MEDS ORDERED: SENEXON-S TABL1 EAC1 PO (09:42)
[2017-01-30] MEDS ORDERED: KEFLEX250 M2 PO (11:41)
[2017-02-24] MEDS ORDERED: CIPRO500 M2 PO (21:15)
== END 2017-01-09 15:00 | DRG 478 ==
LOC: BRNOP 10:18 → BURN 18:19 → ORW 12-14 11:16 → BURN 12-14 12:25 → 5WD 12-22 00:55 → ORW 12-26 11:41 → PACU 12-26 13:34 → 5WD 12-26 14:35
PROVIDERS: Surgery; ADMIT Surgery
PROC: 3E0F7GC Introduction of Other Therapeutic Substance into Respiratory Tract, Via Natural or Artificial Opening (ICD-10-PCS; 2016-12-11)
PROC: 0QBP0ZX Excision of Left Metatarsal, Open Approach, Diagnostic (ICD-10-PCS; principal; 2016-12-12)
PROC: 3E0234Z Introduction of Serum, Toxoid and Vaccine into Muscle, Percutaneous Approach (ICD-10-PCS; principal; 2016-12-12)
PROC: 0DHA3UZ Insertion of Feeding Device into Jejunum, Percutaneous Approach (ICD-10-PCS; 2016-12-26)
DX: M86.171 Other acute osteomyelitis, right ankle and foot (principal); E44.0 Moderate protein-calorie malnutrition; K56.7 Ileus, unspecified; G62.9 Polyneuropathy, unspecified; K31.84 Gastroparesis; N31.9 Neuromuscular dysfunction of bladder, unspecified; G60.0 Hereditary motor and sensory neuropathy; I87.2 Venous insufficiency (chronic) (peripheral); K59.8 Other specified functional intestinal disorders; Z89.412 Acquired absence of left great toe; Z23 Encounter for immunization
CPT/HCPCS: A9541; C1894; G0463; J0171; J1200; J1364; J1580; J2250; J2270; J2405; J2543; J2765; J3370; J7030; J7050; J7121; J7999; Q4100